=== PATIENT | female | born 1995 | race African-American/Black ===

== ENCOUNTER 2018-07-04 06:32 | Emergency (ER) | payer OTHER, SELFPAY ==
[2018-07-04] MEDS ORDERED: LORAZEPAM 1 MG TABLET ONE (06:48)
[2018-07-04] MEDS ORDERED: KETOROLAC 30 MG/ML INJ ONE (07:13)
--- NOTE | 2018-07-04 07:16 | ER ---
Nurse's Notes [facility] Name: Berenice Barboza Age: 23 yrs Sex: Female : 1995 Arrival Date: 07/04/2018 Time: 06:37 Bed 7 Private MD: Diagnosis: Abdominal migraine, not intractable Presentation: 07/04 06:37 Presenting complaint: EMS states: Menstrual camps that began this morning about 0300, lp1 states she has cycles that are painful similar to this with nausea; Patient states she cannot go to work with the pain this severe. Transition of care: patient was not received from another setting of care. Onset of symptoms was July 04, 2018 at 03:00. Risk Assessment: Do you want to hurt yourself or someone else? Patient reports no desire to harm self or others. Initial Sepsis Screen: Does the patient meet any 2 criteria? No. Patient's initial sepsis screen is negative. Does the patient have a suspected source of infection? No. Patient's initial sepsis screen is negative. Care prior to arrival: None. 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 - Social history:: Smoking status: Patient uses tobacco products, smokes one-half pack cigarettes per day, Patient uses street drugs, marijuana. - Ebola Screening: : No symptoms or risks identified at this time. Screenin:41 Abuse screen: Denies threats or abuse. Denies injuries from another. Nutritional lp1 screening: No deficits noted. Tuberculosis screening: No symptoms or risk factors identified. Fall Risk None identified. Assessment: 06:43 General: Appears uncomfortable, Behavior is anxious, crying. Pain: Complains of pain in lp1 suprapubic area Pain currently is 9 out of 10 on a pain scale. Quality of pain is described as crampy, Pain began 3 hours ago. Neuro: Level of Consciousness is awake, alert, obeys commands, Oriented to person, place, time, situation. Cardiovascular: Patient's skin is warm and dry. Respiratory: Respiratory pattern is hyperventilation. GI: Abdomen is non-distended, Bowel sounds present X 4 quads. Abdomen is tender to palpation in suprapubic area Reports nausea. : Reports cramping. EENT: No deficits noted. Derm: Skin is intact, Skin is dry, Skin is normal. Musculoskeletal: Circulation, motion, and sensation intact. 07:20 Reassessment: Pt states "I threw up whatever pill they gave me as soon as she walked jl7 out of the room. I still feel nauseous and need something to stop it. I told them that the only thing that works is Phenergan by the IV." Provider notified, see MAR for orders. Explained to pt that we are administering the medications IM because the effects will last longer. Pt verbalized understanding. 07:25 Reassessment: pt will be discharged once shot time is up. jl7 07:35 Reassessment: pt actively vomiting at this time. Told pt to give a little more time for jl7 the medication to work. 07:50 Reassessment: Reassessment: Pt vomited again, provider notified, see MAR for orders. jl7 08:15 Reassessment: Patient states feeling better. Patient states symptoms have improved. jl7 08:36 Reassessment: Pt has been discharged, pt remained in the room and began vomiting again. jl7 Provider notified, see MAR for orders. Vital Signs: 06:40 BP 115 / 78; Pulse 78; Resp 18; Temp 98.3(O); Pulse Ox 100% on R/A; Weight 90.72 kg; lp1 Height 5 ft. 3 in. (160.02 cm); Pain 9/10; 07:20 BP 124 / 64; Pulse 86; Resp 16 S; Pulse Ox 100% on R/A; jl7 08:30 BP 120 / 71; Pulse 80; Resp 16; Pulse Ox 100% ; jl7 06:40 Body Mass Index 35.43 (90.72 kg, 160.02 cm) lp1 ED Course: 06:37 Patient arrived in ED. ak1 06:37 [facility] Mont[facility]C [facility]. snw 06:37 Carmelo Rajput MD is Attending Physician. snw 06:37 Chaudhari, Taya, RN is Primary Nurse. lp1 06:39 Triage completed. lp1 06:41 Arm band placed on left wrist. lp1 06:41 Patient has correct armband on for positive identification. lp1 08:30 No provider procedures requiring assistance completed. Patient did not have IV access jl7 during this emergency room visit. Administered Medications: 06:44 Drug: Ativan 2 mg Route: PO; ak1 07:24 Follow up: Response: No adverse reaction jl7 07:24 Drug: TORadol 60 mg Route: IM; Site: right gluteus; jl7 08:15 Follow up: Response: No adverse reaction; Pain is decreased jl7 07:24 Drug: Phenergan 25 mg Route: IM; Site: left gluteus; jl7 08:16 Follow up: Response: No adverse reaction jl7 07:58 Drug: Zofran 8 mg Route: PO; jl7 08:16 Follow up: Response: No adverse reaction; Nausea is decreased jl7 08:39 Not Given (Duplicate Order): Zofran 4 mg PO once jl7 08:39 Drug: Zofran 8 mg Route: PO; jl7 09:00 Follow up: Response: No adverse reaction; Nausea is decreased jl7 Outcome: 07:16 Discharge ordered by MD. snw 08:30 Discharged to home ambulatory. jl7 08:30 Condition: stable 08:30 Discharge instructions given to patient, Instructed on discharge instructions, follow up and referral plans. medication usage, Demonstrated understanding of instructions, follow-up care, medications, Prescriptions given X 1. 09:15 Patient left the ED. 7 Signatures: Tricia Montaño, R DEVELOPER-C R DEVELOPER-Csnw Taya Chaudhari, RN RN lp1 Milagros Clancy RN RN ak1 Francisco Holland RN RN jl7 Corrections: (The following items were deleted from the chart) 07:59 07:35 Reassessment: pt actively vomiting at this time. jl7 jl7 08:39 08:38 Zofran 8 mg PO jl7 jl7 09:32 09:31 Patient left the ED. jl7 jl7
--- NOTE | 2018-07-04 07:16 | EDPHYS ---
Physician Documentation [facility] Name: Berenice Barboza Age: 23 yrs Sex: Female : 1995 Arrival Date: 07/04/2018 Time: 06:37 Bed 7 Private MD: ED Physician Carmelo Rajput HPI: 07/04 06:41 This 23 yrs old Black Female presents to ER via EMS with complaints of Abdominal snw Cramping. 06:41 The patient presents with menstrual cramping. Onset: The symptoms/episode snw began/occurred this morning. Modifying factors: The symptoms are alleviated by nothing. Associated signs and symptoms: Pertinent positives: cramping, nausea. Severity of symptoms: At their worst the symptoms were moderate. The patient has experienced similar episodes in the past, chronically. The patient has not recently seen a physician. 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 - Social history:: Smoking status: Patient uses tobacco products, smokes one-half pack cigarettes per day, Patient uses street drugs, marijuana. - Ebola Screening: : No symptoms or risks identified at this time. ROS: 06:38 Constitutional: Negative for fever, chills, and weight loss, Eyes: Negative for injury, snw pain, redness, and discharge, ENT: Negative for injury, pain, and discharge, Neck: Negative for injury, pain, and swelling, Cardiovascular: Negative for chest pain, palpitations, and edema, Respiratory: Negative for shortness of breath, cough, wheezing, and pleuritic chest pain, Abdomen/GI: Negative for abdominal pain, nausea, vomiting, diarrhea, and constipation, Back: Negative for injury and pain, MS/Extremity: Negative for injury and deformity, Skin: Negative for injury, rash, and discoloration, Neuro: Negative for headache, weakness, numbness, tingling, and seizure. 06:38 : Positive for low abd cramping, nausea. Exam: 06:38 Head/Face: Normocephalic, atraumatic. Eyes: Pupils equal round and reactive to light, snw extra-ocular motions intact. Lids and lashes normal. Conjunctiva and sclera are non-icteric and not injected. Cornea within normal limits. Periorbital areas with no swelling, redness, or edema. ENT: Nares patent. No nasal discharge, no septal abnormalities noted. Tympanic membranes are normal and external auditory canals are clear. Oropharynx with no redness, swelling, or masses, exudates, or evidence of obstruction, uvula midline. Mucous membranes moist. Neck: Trachea midline, no thyromegaly or masses palpated, and no cervical lymphadenopathy. Supple, full range of motion without nuchal rigidity, or vertebral point tenderness. No Meningismus. Chest/axilla: Normal chest wall appearance and motion. Nontender with no deformity. No lesions are appreciated. Cardiovascular: Regular rate and rhythm with a normal S1 and S2. No gallops, murmurs, or rubs. Normal PMI, no JVD. No pulse deficits. Respiratory: Lungs have equal breath sounds bilaterally, clear to auscultation and percussion. No rales, rhonchi or wheezes noted. No increased work of breathing, no retractions or nasal flaring. Back: No spinal tenderness. No costovertebral tenderness. Full range of motion. Skin: Warm, dry with normal turgor. Normal color with no rashes, no lesions, and no evidence of cellulitis. MS/ Extremity: Pulses equal, no cyanosis. Neurovascular intact. Full, normal range of motion. Neuro: Awake and alert, GCS 15, oriented to person, place, time, and situation. Cranial nerves II-XII grossly intact. Motor strength 5/5 in all extremities. Sensory grossly intact. Cerebellar exam normal. Normal gait. 06:38 Constitutional: The patient appears awake, anxious, hyperventilating 06:38 Abdomen/GI: Inspection: abdomen appears normal, Bowel sounds: normal, Palpation: mild abdominal tenderness, in the suprapubic area. 06:38 Psych: Behavior/mood is pleasant, inappropriate for age, Affect is animated, Oriented to person, place, time. Vital Signs: 06:40 BP 115 / 78; Pulse 78; Resp 18; Temp 98.3(O); Pulse Ox 100% on R/A; Weight 90.72 kg; lp1 Height 5 ft. 3 in. (160.02 cm); Pain 9/10; 07:20 BP 124 / 64; Pulse 86; Resp 16 S; Pulse Ox 100% on R/A; jl7 08:30 BP 120 / 71; Pulse 80; Resp 16; Pulse Ox 100% ; jl7 06:40 Body Mass Index 35.43 (90.72 kg, 160.02 cm) lp1 MDM: 06:38 Patient medically screened. snw 07:20 Data reviewed: vital signs, nurses notes. Data interpreted: Pulse oximetry: on room air snw is 100 %. Interpretation: normal. Counseling: I had a detailed discussion with the patient and/or guardian regarding: the historical points, exam findings, and any diagnostic results supporting the discharge/admit diagnosis, lab results, the need for outpatient follow up, to return to the emergency department if symptoms worsen or persist or if there are any questions or concerns that arise at home. Special discussion: Based on the history and exam findings, there is no indication for further emergent testing or inpatient evaluation. I discussed with the patient/guardian the need to see the OB Gyne specialist for further evaluation of the symptoms. I discussed with the patient/guardian the need to see the primary care provider for further evaluation of the symptoms. 07/04 07:20 Order name: Urine Dipstick--Ancillary (enter results) 07/04 07:20 Order name: Urine --Ancillary (enter results) 07/04 07:03 Order name: Urine Dipstick-Ancillary (obtain specimen); Complete Time: 07:24 snw 07/04 07:03 Order name: Urine Test (obtain specimen); Complete Time: 07:24 snw Administered Medications: 06:44 Drug: Ativan 2 mg Route: PO; ak1 07:24 Follow up: Response: No adverse reaction jl7 07:24 Drug: TORadol 60 mg Route: IM; Site: right gluteus; jl7 08:15 Follow up: Response: No adverse reaction; Pain is decreased jl7 07:24 Drug: Phenergan 25 mg Route: IM; Site: left gluteus; jl7 08:16 Follow up: Response: No adverse reaction jl7 07:58 Drug: Zofran 8 mg Route: PO; jl7 08:16 Follow up: Response: No adverse reaction; Nausea is decreased jl7 08:39 Not Given (Duplicate Order): Zofran 4 mg PO once jl7 08:39 Drug: Zofran 8 mg Route: PO; jl7 09:00 Follow up: Response: No adverse reaction; Nausea is decreased jl7 Disposition: 07/05 06:40 Co-signature as Attending Physician, Carmelo Rajput MD I agree with the assessment and [facility] plan of care. Disposition: 07/04/18 07:16 Discharged to Home. Impression: Abdominal migraine, not intractable. - Condition is Stable. - Discharge Instructions: Abdominal Pain, Adult, Nausea, Adult, Heat Therapy. - Prescriptions for Zofran 4 mg Oral Tablet - take 1 tablet by ORAL route every 12 hours As needed; 20 tablet. - Work release form, Medication Reconciliation Form, Thank You Letter, Antibiotic Education, Prescription Opioid Use form. - Follow up: Private Physician; When: 2 - 3 days; Reason: Recheck today's complaints, Continuance of care, Re-evaluation by your physician. Follow up: Emergency Department; When: As needed; Reason: Worsening of condition. Signatures: Dispatcher [employer] EDWA Carmelo Rajput MD MD cha Therrien, Shelly, SAP PP CONSULTANT-C SAP PP CONSULTANT-Csnw Taya Chaudhari, RN RN lp1 Milagros Clancy RN RN ak1 Francisco Holland, RN RN jl7 Corrections: (The following items were deleted from the chart) 07/04 09:31 07:16 07/04/2018 07:16 Discharged to Home. Impression: Abdominal migraine, not jl7 intractable. Condition is Stable. Forms are Medication Reconciliation Form, Thank You Letter, Antibiotic Education, Prescription Opioid Use. Follow up: Private Physician; When: 2 - 3 days; Reason: Recheck today's complaints, Continuance of care, Re-evaluation by your physician. Follow up: Emergency Department; When: As needed; Reason: Worsening of condition. snw
[2018-07-04] MEDS ORDERED: PROMETHAZINE 25 MG/ML VIAL ONE (07:22)
[2018-07-04] MEDS ORDERED: ONDANSETRON 4 MG (ODT) TAB ONE ×2 (08:01→08:40)
[2018-07-04 09:35] LABS: Urine Blood 3+ (NEG); Urine Glucose NEGATIVE (NEG); Urine Protein 1+ (NEG); Urine pH 8.5 (5.0-7.0)
== END 2018-07-04 09:31 | disposition home or self-care (01) ==
LOC: ER 06:32
DX: G43.D0 Abdominal migraine, not intractable (principal); F17.210 Nicotine dependence, cigarettes, uncomplicated
CPT/HCPCS: 81003; 81025; 96372; 99283; J2550